=== PATIENT | female | born 1955 | race Caucasian/White ===

== ENCOUNTER 2020-11-26 06:57 | Day surgery (SDC) | payer OTHER ==
[2020-11-24 10:42] VITALS: BMI 35.5
[~2020-11-26 06:57] MED LIST: LACTATED RINGERS 1,000 ML IV SCH
[2020-11-26 07:26] VITALS: TEMP 97.5
[2020-11-26] MEDS ORDERED: LACTATED RINGERS 1,000 ML IV ONE (07:32)
[2020-11-26] MEDS ORDERED: PROPOFOL 10 MG/ML 20 ML VIAL IV ONE (07:58)
[2020-11-26] MEDS ORDERED: LIDOCAINE 1% INJ 10MG/ML (20 ML MDV) ONE (07:58)
--- NOTE | 2020-11-26 08:19 | P.PCN ---
Date of Procedure: 11/26/20 Procedure(s) Performed: BRIEF HISTORY: Patient is a 65-year-old pleasant white female scheduled for an elective colonoscopy as a part of screening for colorectal neoplasia. PROCEDURE PERFORMED: Colonoscopy. PREOPERATIVE DIAGNOSIS: Screening for colon cancer. IV sedation per Anesthesia. PROCEDURE: After informed consent was obtained, the patient, was brought into the endoscopy unit. IV sedation was administered by Anesthesia under continuous monitoring. Digital rectal examination was normal. Initially the Olympus CF-160 flexible video pediatric colonoscope was then inserted in the rectum, gradually advanced into the cecum with mild to moderate difficulty. Careful examination was performed as the scope was gradually being withdrawn. Ileocecal valve and the appendiceal orifice were visualized and appeared normal. Prep was excellent. Mucosa of the cecum, ascending colon, transverse colon, descending colon, sigmoid colon, and rectum appeared normal. Retroflexion was performed in the rectum and no lesions were seen. The patient tolerated the procedure well. IMPRESSION: Normal-appearing colon from rectum to cecum with no evidence of colorectal neoplasia. RECOMMENDATIONS: Findings of this examination were discussed with the patient as well as her family. She was advised to have a repeat screening colonoscopy in 10 years..
[2020-11-26 08:37] VITALS: BP 144/81; PULSE 69; RESP 16
== END 2020-11-26 08:50 | disposition home or self-care (01) ==
LOC: ORWHC2ENDO 06:57
PROVIDERS: ATTEND Internal Medicine Gastroenterology
DX: Z12.11 Encounter for screening for malignant neoplasm of colon (principal); Z79.1 Long term (current) use of non-steroidal anti-inflammatories (NSAID); E78.5 Hyperlipidemia, unspecified; F17.200 Nicotine dependence, unspecified, uncomplicated; Z79.899 Other long term (current) drug therapy
CPT/HCPCS: J2001; J2704; G0121

== ENCOUNTER 2022-06-25 16:31 | Emergency (ER) | payer OTHER ==
[2022-06-25 16:36] VITALS: BP 149/89; PULSE 90; RESP 20; TEMP 98.2
--- NOTE | 2022-06-25 16:59 | ED ---
Recheck HPI - General Chief Complaint: Recheck/Abnormal Lab/Rx Stated Complaint: skin problem-post knee surgery Time Seen by Provider: 06/25/22 16:39 Source: patient, RN notes reviewed Mode of arrival: ambulatory Limitations: no limitations - History of Present Illness Initial Comments: Patient is a 66-year-old female presenting to the emergency room at the direction of urgent care for further evaluation of concerns for a pinpoint opening at the proximal end of her recent right knee replacement incision. She reports that the incision has overall healed well and that there was a small amount of swelling at the proximal end with a pinpoint opening when she pushed on it and express fluid previously she reports bloody drainage. She denies any purulent drainage. She denies any changes in range of motion. The incision overall is well healed. She denies any systemic symptoms including any chest pain, shortness of breath, abdominal pain, fevers, chills, weakn ess, altered mental status. In addition to her osteoarthritis with her right knee replacement in mid May she has a past medical history of resolved ITP and hyperlipidemi a. - Related Data Home Medications Medication Instructions Recorded Confirmed Ergocalciferol [Vitamin D2 (1250 1,250 mcg PO TU 11/24/20 11/24/20 Mcg = 16414 Iu)] Meloxicam 15 mg PO DAILY 11/24/20 11/24/20 [place]-3 Fatty Acids [[place]-3] 1,000 mg PO DAILY 11/24/20 11/24/20 Red Yeast Rice 600 mg PO DAILY 11/24/20 11/24/20 Varenicline [Chantix Continuing 1 mg PO BID 11/24/20 11/24/20 Pack] Previous Rx's Medication Instructions Recorded Cephalexin [Keflex] 500 mg PO Q12H 5 Days #10 cap 06/25/22 Allergies Allergy/AdvReac Type Severity Reaction Status Date / Time No Known Allergies Allergy Verified 06/25/22 16:36 Review of Systems ROS Statement: Those systems with pertinent positive or pertinent negative responses have been documented in the HPI. ROS Other: All systems not noted in ROS Statement are negative. Past Medical History Past Medical History: Blood Disorder, Hyperlipidemia Additional Past Medical History / Comment(s): Hx ITP, now resolved. 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 Past Anesthesia/Blood Transfusion Reactions: Previous Problems w/ Anesthesia Additional Past Anesthesia/Blood Transfusion Reaction / Comment(s): "Comes out of anesthesia mean." Past Psychological History: No Psychological Hx Reported Smoking Status: Current every day smoker Past Alcohol Use History: None Reported Past Drug Use History: None Reported - Past Family History Mother Family Medical History: Cancer Additional Family Medical History / Comment(s): Breast cancer. General Exam - General Exam Comments Initial Comments: GENERAL: No acute distress, well developed, well nourished. HEENT: Normocephalic, atraumatic. Pupils equal, round, reactive to light. Moist mucous membranes. LUNGS: No respiratory distress or use of accessory muscles. HEART: Regular rate.. ABDOMEN: Non-distended. BACK: Normal inspection. EXTREMITIES: Trace generalized left knee effusion without any induration redness or warmth to the joint. Postoperative range of motion unchanged. Incision description as below. NEUROLOGIC: Alert & oriented x 3. CN II-XII grossly intact. PSYCHIATRIC: Normal affect and behavior. DERMATOLOGIC: Left knee incision well approximated and with pin point opening distal end with trace erythema around opening without drain if not expressed with pressure. Sanguinous non-foul minimal drainage expressed. Limitations: no limitations Course Vital Signs 06/25/22 16:33 Temperature 98.2 F Pulse Rate 90 Respiratory 20 Rate Blood Pressure 149/89 O2 Sat by Pulse 99 Oximetry Medical Decision Making - Medical Decision Making Was pt. sent in by a medical professional or institution (VANDA Vaughn, DESK DIRECTOR, urgent care, hospital, or senior living...) When possible be specific @ -Urgent care Did you speak to anyone other than the patient for history (EMS, parent, family, police, friend...)? What history was obtained from this source @ -No Did you review nursing and triage notes (agree or disagree)? Why? @ -I reviewed and agree with nursing and triage notes Were old charts reviewed (outside hosp., previous admission, EMS record, old EKG, old radiological studies, urgent care reports/EKG's, senior living records)? Report findings @ -No old charts were reviewed Differential Diagnosis (chest pain, altered mental status, abdominal pain women, abdominal pain men, vaginal bleeding, weakness, fever, dyspnea, syncope, headache, dizziness, GI bleed, back pain, seizure, CVA, palpatations, mental health)? @ -Differential incision and drainage: Proximal wound drainage benign, incision infection. Impacted chili. Superficial skin infection, this is not meant to be an all-inclusive list. EKG interpreted by me (3pts min.). @ -None done X-rays interpreted by me (1pt min.). @ -None done CT interpreted by me (1pt min.). @ -None done U/S interpreted by me (1pt. min.). @ -None done What testing was considered but not performed or refused? (CT, X-rays, U/S, labs)? Why? @ -CBC and x-ray of the right knee consider however given lack of systemic symptoms lack of induration and no purulent drainage diagnostic imaging and laboratory studies are deferred What meds were considered but not given or refused? Why? @ -None Did you discuss the management of the patient with other professionals (professionals i.e. , PA, DESK DIRECTOR, lab, RT, psych nurse, social work faculty member, director of cloud services, teacher, patrol community service officer, top case assembler)? Give summary @ -No Was smoking cessation discussed for >3mins.? @ -No Was critical care preformed (if so, how long)? @ -No Were there social determinants of health that impacted care today? How? (Homelessness, low income, unemployed, alcoholism, drug addiction, transportation, low edu. Level, literacy, decrease access to med. care, correction, rehab)? @ -No Was there de-escalation of care discussed even if they declined (Discuss DNR or withdrawal of care, Hospice)? DNR status @ -No What co-morbidities impacted this encounter? (DM, HTN, Smoking, COPD, CAD, Cancer, CVA, ARF, Chemo, Hep., AIDS, mental health diagnosis, sleep apnea, morbid obesity)? @ -Recent total left knee replacement Was patient admitted / discharged? Hospital course, mention meds given and route, prescriptions, significant lab abnormalities, going to OR and other pertinent info. @ -66-year-old female presenting to the emergency room at the direction of infection care for further evaluation of a pinpoint drainage location at the proximal end of her incision. Trace erythema around the opening with mild erythema consistent with irritation from expressing fluid from the site. No purulent drainage. No significant joint effusion. No joint range of motion impairment. No induration or warmth. No systemic symptoms including any fevers or chills. Findings of likely benign small proximal opening in the incision as a common course of incision healing discussed with patient. She receives 1 g of antibiotics IM at urgent care. Discussed the low probability of infection however will give short empiric course of Keflex to cover skin infection. Return parameters to the emergency room discussed at length. Encouraged follow-up with her surgeon as scheduled. Will discharge home in stable condition with follow-up with her surgeon. Undiagnosed new problem with uncertain prognosis? @ -No Drug Therapy requiring intensive monitoring for toxicity (Heparin, Nitro, Insulin, Cardizem)? @ -No Were any procedures done? @ -Small amount of serosanguineous/sanguinous less than 1 mL expressed from a pinpoint opening of proximal end of left total knee replacement incision Diagnosis/symptom? @ -Encounter for wound check. Trace drainage from a knee incision Acute, or Chronic, or Acute on Chronic? @ -Acute Uncomplicated (without systemic symptoms) or Complicated (systemic symptoms)? @ -Uncomplicated Side effects of treatment? @ -No Exacerbation, Progression, or Severe Exacerbation? @ -No Poses a threat to life or bodily function? How? (Chest pain, [place], [place], pneumonia, PE, COPD, DKA, ARF, appy, cholecystitis, CVA, Diverticulitis, Homicidal, Suicidal, threat to staff... and all critical care pts) @ -No Case discussed with Dr. Barksdale. Disposition Clinical Impression: Encounter for wound re-check Disposition: HOME SELF-CARE Condition: Stable Additional Instructions: Please complete course of antibiotic as prescribed. Please continue physical therapy as recommended by your surgeon. Continue to keep incision clean and dry. Please follow-up with your surgeon in your primary care provider as scheduled. Please return to the Emergency Department if symptoms worsen or any other concerns. Prescriptions: Cephalexin [Keflex] 500 mg PO Q12H 5 Days #10 cap Is patient prescribed a controlled substance at d/c from ED?: No Referrals: Zeeshan Nur MD [Primary Care Provider] - 1-2 days Markus Mcdowell MD [REFERRING] - As Soon As Possible (As scheduled) Time of Disposition: 17:02
== END 2022-06-25 17:20 | disposition home or self-care (01) ==
LOC: EC 16:31
DX: Z48.01 Encounter for change or removal of surgical wound dressing (principal); F17.200 Nicotine dependence, unspecified, uncomplicated
CPT/HCPCS: 99282

== ENCOUNTER 2024-04-11 18:38 | Emergency (ER) | payer OTHER ==
[2024-04-11 18:45] VITALS: RESP 18; TEMP 97.7
--- NOTE | 2024-04-11 19:14 | ED ---
Skin/Abscess/FB HPI - General Chief complaint: Skin/Abscess/Foreign Body Stated complaint: R leg sore Time Seen by Provider: 04/11/24 18:51 Source: patient, RN notes reviewed Mode of arrival: ambulatory Limitations: no limitations - History of Present Illness Initial comments: This is a 68-year-old female with a history of osteoarthritis to the emergency d epartment chief complaint of right lower extremity ulcerations/wounds. Patient was evaluated urgent care earlier today was prompted to report to the emergency department for further evaluation. Patient states that approximately 2 weeks ago she injured her right leg that caused to lacerations. She states that over the past 4 days the areas have gotten deeper and have not been healing appropriately. Patient denies fevers, chills, nausea, vomiting, pain around wounds. She denies recent antibiotic use. Denies diagnosis of diabetes. Patient endorses bilateral lower extremity peripheral edema however states that this is at her baseline. - Related Data Home Medications Medication Instructions Recorded Confirmed Ergocalciferol [Vitamin D2 (1250 1,250 mcg PO TU 11/24/20 11/24/20 Mcg = 60631 Iu)] Meloxicam 15 mg PO DAILY 11/24/20 11/24/20 [place]-3 Fatty Acids [[place]-3] 1,000 mg PO DAILY 11/24/20 11/24/20 Red Yeast Rice 600 mg PO DAILY 11/24/20 11/24/20 Varenicline [Chantix Continuing 1 mg PO BID 11/24/20 11/24/20 Pack] Previous Rx's Medication Instructions Recorded Cephalexin [Keflex] 500 mg PO Q12H 5 Days #10 cap 06/25/22 Cephalexin [Keflex] 500 mg PO Q6HR #40 cap 04/11/24 Sulfamethox-Tmp 800-160Mg [Bactrim 1 each PO Q12HR #20 tab 04/11/24 Ds] Allergies Allergy/AdvReac Type Severity Reaction Status Date / Time No Known Allergies Allergy Verified 06/25/22 16:36 Review of Systems ROS Statement: Those systems with pertinent positive or pertinent negative responses have been documented in the HPI. ROS Other: All systems not noted in ROS Statement are negative. Past Medical History Past Medical History: Blood Disorder, Hyperlipidemia Additional Past Medical History / Comment(s): Hx ITP, now resolved. 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 bilateral knee replacements Past Anesthesia/Blood Transfusion Reactions: Previous Problems w/ Anesthesia Additional Past Anesthesia/Blood Transfusion Reaction / Comment(s): "Comes out of anesthesia mean." Past Psychological History: No Psychological Hx Reported Smoking Status: Former smoker Past Alcohol Use History: None Reported Past Drug Use History: None Reported - Past Family History Mother Family Medical History: Cancer Additional Family Medical History / Comment(s): Breast cancer. General Exam Limitations: no limitations General appearance: alert, in no apparent distress Eye exam: Present: normal appearance, PERRL, EOMI. Absent: scleral icterus, conjunctival injection, periorbital swelling Neck exam: Present: normal inspection. Absent: tenderness, meningismus, lymphadenopathy Respiratory exam: Present: normal lung sounds bilaterally. Absent: respiratory distress, wheezes, rales, rhonchi, stridor Cardiovascular Exam: Present: regular rate, normal rhythm, normal heart sounds. Absent: systolic murmur, diastolic murmur, rubs, gallop, clicks GI/Abdominal exam: Present: soft, normal bowel sounds. Absent: distended, tenderness, guarding, rebound, rigid Extremities exam: Present: other (bilateral lower extremity 2+ pitting edema) Right Lower Leg exam: Present: swelling, deformity (anterior ulcer aprox. 2 cm by 1 cm and additional lateral 1 cm by 1 cm, mild serous drainage, no erythema, purulence and non-tender) Neurovascular tendon exam: Present: no vascular compromise. Absent: pulse deficit, abnormal cap refill Gait: observed and normal Back exam: Present: normal inspection Skin exam: Present: warm, dry, intact, normal color. Absent: rash Course Vital Signs 04/11/24 18:40 Temperature 97.7 F Pulse Rate 92 Respiratory 18 Rate Blood Pressure 153/73 O2 Sat by Pulse 100 Oximetry Medical Decision Making - Medical Decision Making Was pt. sent in by a medical professional or institution (, PA, SULFURIC ACID PLANT OPERATOR, urgent care, hospital, or fpc...) When possible be specific @ -Patient was advised by urgent care to report to the emergency department for further evaluation Did you speak to anyone other than the patient for history (EMS, parent, family, police, friend...)? What history was obtained from this source @ -No Did you review nursing and triage notes (agree or disagree)? Why? @ -I reviewed and agree with nursing and triage notes Were old charts reviewed (outside hosp., previous admission, EMS record, old EKG, old radiological studies, urgent care reports/EKG's, fpc records)? Report findings @ -No old charts were reviewed Differential Diagnosis (chest pain, altered mental status, abdominal pain women, abdominal pain men, vaginal bleeding, weakness, fever, dyspnea, syncope, headache, dizziness, GI bleed, back pain, seizure, CVA, palpatations, mental health, musculoskeletal)? @ -Cellulitis, ulcer, bacteremia, this is not all inclusive EKG interpreted by me (3pts min.). @ -none X-rays interpreted by me (1pt min.). @ -X-ray of the tibia-fibula reveals no evidence of acute fracture with right anterior marquez wound without evidence for osteomyelitis or lucency to suggest abscess CT interpreted by me (1pt min.). @ -None done U/S interpreted by me (1pt. min.). @ -None done What testing was considered but not performed or refused? (CT, X-rays, U/S, labs)? Why? @ -None What meds were considered but not given or refused? Why? @ -None Did you discuss the management of the patient with other professionals (professionals i.e. , PA, SULFURIC ACID PLANT OPERATOR, lab, RT, psych nurse, case management social worker, prop and effects designer, teacher, supply officer, caser up)? Give summary @ -No Was smoking cessation discussed for >3mins.? @ -No Was critical care preformed (if so, how long)? @ -No Were there social determinants of health that impacted care today? How? (Homelessness, low income, unemployed, alcoholism, drug addiction, transportation, low edu. Level, literacy, decrease access to med. care, care home, rehab)? @ -No Was there de-escalation of care discussed even if they declined (Discuss DNR or withdrawal of care, Hospice)? DNR status @ -No What co-morbidities impacted this encounter? (DM, HTN, Smoking, COPD, CAD, Cancer, CVA, ARF, Chemo, Hep., AIDS, mental health diagnosis, sleep apnea, morbid obesity)? @ -None Was patient admitted / discharged? Hospital course, mention meds given and route, prescriptions, significant lab abnormalities, going to OR and other pe rtinent info. @ -Discharge. 68-year-old female with right lower extremity ulcer and wound. On initial evaluation patient is resting company no signs acute distress. Her vital signs are stable. She is noted to have 2 ulcers of the right lower extremity measuring approximately 2 cm x 1 cm and 1 cm x 1 cm. There is mild serous drainage with no tenderness to palpation and no surrounding erythema. Patient was offered pain medication but has declined at this time. Workup including CBC and CMP unremarkable, lactic acid nonelevated 0.9, and x-ray reveals no evidence of osteomyelitis or lucency to suggest abscess. Patient will be provided with dose of Rocephin in the emergency department and send outpatient prescriptions for Bactrim and Keflex and provided with wound care follow-up. All questions have been answered at bedside and strict return parameters discussed with the patient she is verbalized understanding. Case discussed with Dr. Vences Undiagnosed new problem with uncertain prognosis? @ -No Drug Therapy requiring intensive monitoring for toxicity (Heparin, Nitro, Insulin, Cardizem)? @ -No Were any procedures done? @ -No Diagnosis/symptom? @ -ulcer/wound of lower extremity, cellulitis Acute, or Chronic, or Acute on Chronic? @ -acute Uncomplicated (without systemic symptoms) or Complicated (systemic symptoms)? @ -uncomplicated Side effects of treatment? @ -No Exacerbation, Progression, or Severe Exacerbation? @ -No Poses a threat to life or bodily function? How? (Chest pain, [place], [place], pneumonia, PE, COPD, DKA, ARF, appy, cholecystitis, CVA, Diverticulitis, Homicidal, Suicidal, threat to staff... and all critical care pts) @ -No - Lab Data Result diagrams: 04/11/24 19:33 04/11/24 19:33 Lab Results 04/11/24 04/11/24 04/11/24 Range/Units 19:33 19:33 19:33 WBC 9.5 (3.8-10.6) k/uL RBC 4.46 (3.80-5.40) m/uL Hgb 13.3 (11.4-16.0) gm/dL Hct 42.0 (34.0-46.0) % MCV 94.3 (80.0-100.0) fL MCH 29.9 (25.0-35.0) pg MCHC 31.7 (31.0-37.0) g/dL RDW 12.9 (11.5-15.5) % Plt Count 413 (150-450) k/uL MPV 7.8 Neutrophils % 50 % Lymphocytes % 39 % Monocytes % 7 % Eosinophils % 3 % Basophils % 0 % Neutrophils # 4.7 (1.3-7.7) k/uL Lymphocytes # 3.7 (1.0-4.8) k/uL Monocytes # 0.6 (0-1.0) k/uL Eosinophils # 0.3 (0-0.7) k/uL Basophils # 0.0 (0-0.2) k/uL Sodium 137 (137-145) mmol/L Potassium 4.2 (3.5-5.1) mmol/L Chloride 107 (98-107) mmol/L Carbon Dioxide 23 (22-30) mmol/L Anion Gap 7 mmol/L BUN 24 H (7-17) mg/dL Creatinine 0.84 (0.52-1.04) mg/dL Est GFR (CKD-EPI)AfAm 84 (>60 ml/min/1.73 sqM) Est GFR (CKD-EPI)NonAf 73 (>60 ml/min/1.73 sqM) Glucose 97 (74-99) mg/dL Plasma Lactic Acid Andreas 0.9 (0.7-2.0) mmol/L Calcium 9.5 (8.4-10.2) mg/dL Total Bilirubin 0.5 (0.2-1.3) mg/dL AST 32 (14-36) U/L ALT 34 (4-34) U/L Alkaline Phosphatase 97 (38-126) U/L Total Protein 7.4 (6.3-8.2) g/dL Albumin 4.1 (3.5-5.0) g/dL Disposition Clinical Impression: Ulcer of lower extremity, Cellulitis Disposition: HOME SELF-CARE Condition: Good Instructions (If sedation given, give patient instructions): Cellulitis (ED) Additional Instructions: Please return to the Emergency Department if symptoms worsen or any other concerns. Complete full course of both antibiotics as prescribed. Recommend that you continue to keep area clean and dry as well. Follow-up with provided compliance specialist for further evaluation. Prescriptions: Sulfamethox-Tmp 800-160Mg [Bactrim Ds] 1 each PO Q12HR #20 tab Cephalexin [Keflex] 500 mg PO Q6HR #40 cap Is patient prescribed a controlled substance at d/c from ED?: No Referrals: Zeeshan Nur MD [Primary Care Provider] - 1-2 days [facility] [NON-STAFF] - 1-2 days Time of Disposition: 21:06
[2024-04-11 19:42] LABS: Basophils % (A) 0 %; Eosinophils # (A) 0.3 k/uL (0-0.7); Eosinophils % (A) 3 %; HGB 13.3 gm/dL (11.4-16.0); Lymphocytes # (A) 3.7 k/uL (1.0-4.8); Lymphocytes % (A) 39 %; MCH 29.9 pg (25.0-35.0); MCHC 31.7 g/dL (31.0-37.0); MCV 94.3 fL (80.0-100.0); Mean Platelet Volume 7.8; Monocytes # (A) 0.6 k/uL (0-1.0); Monocytes % (A) 7 %; Neutrophils # (A) 4.7 k/uL (1.3-7.7); Neutrophils % (A) 50 %; Platelet Count 413 k/uL (150-450); RBC 4.46 m/uL (3.80-5.40); RDW 12.9 % (11.5-15.5); WBC 9.5 k/uL (3.8-10.6)
--- NOTE | 2024-04-11 20:14 | XR ---
EXAMINATION TYPE: XR tibia fibula RT DATE OF EXAM: 04/11/2024 7:32 PM COMPARISON: None CLINICAL INDICATION: Female, 68 years old with history of wound; TECHNIQUE: XR tibia fibula RT; examined in AP and lateral projections. FINDINGS: Soft tissue wound over the anterior marquez, no evidence for osseous erosion. Soft tissue rafal a throughout the subcutaneous tissues. No evidence of any acute osseous pathology, joint dislocation. Total knee arthroplasty changes appear intact. IMPRESSION: 1. No evidence of acute fracture. 2. Right Anterior shins wound without evidence for osteomyelitis or lucency to suggest abscess. [facility], , 04/11/2024 8:12 PM
[2024-04-11 20:24] LABS: ALT 34 U/L (4-34); AST 32 U/L (14-36); African American GFR (CKD) 84 (>60 ml/min/1.73 sqM); Albumin 4.1 g/dL (3.5-5.0); Alkaline Phosphatase 97 U/L (38-126); Anion Gap 7 mmol/L; Blood Urea Nitrogen 24 mg/dL (7-17); Calcium 9.5 mg/dL (8.4-10.2); Carbon Dioxide 23 mmol/L (22-30); Chloride 107 mmol/L (98-107); Glucose 97 mg/dL (74-99); Non-African American GFR(CKD) 73 (>60 ml/min/1.73 sqM); Potassium 4.2 mmol/L (3.5-5.1); Sodium 137 mmol/L (137-145); Total Bilirubin 0.5 mg/dL (0.2-1.3); Total Protein 7.4 g/dL (6.3-8.2)
[2024-04-11] MEDS: cefTRIAXone IN SWFI 1,000 MG/10 ML SYRINGE IVP STA (21:33)
[2024-04-11 21:40] VITALS: BP 130/74; PULSE 75
== END 2024-04-11 21:48 | disposition home or self-care (01) ==
LOC: EC 18:38
DX: L97.919 Non-pressure chronic ulcer of unspecified part of right lower leg with unspecified severity (principal); L03.115 Cellulitis of right lower limb; B96.5 Pseudomonas (aeruginosa) (mallei) (pseudomallei) as the cause of diseases classified elsewhere; Z87.891 Personal history of nicotine dependence
CPT/HCPCS: 99283; 96374; 36415; 80053; 83605; 85025; 86140; 87070; 87205; 87075; 87077; 87186; 73590; J0696